=== PATIENT | male | born 1990 | race Caucasian/White ===

== ENCOUNTER 2018-06-08 09:34 | Emergency (ER) | payer SELFPAY ==
[2018-06-08] MEDS ORDERED: Bupivacaine 0.5% W/EPI SDV* 30 ML VIAL ONE (09:55)
--- NOTE | 2018-06-08 10:01 | ED ---
Throat Pain/Nasal Congestion - HPI Summary HPI Summary: This patient is a 27 year old M presenting to [facility] with a chief complaint of dental swelling that began this morning. Pt states he has needed to get his wisdom teeth removed but has not had time. The patient rates the pain 8/10 in severity. Patient reports ear pain, trouble swallowing, and gingival swelling. Patient denies fevers. He got a shot of bicillin two weeks ago. - History of Current Complaint Chief Complaint: EDDentalPain Time Seen by Provider: 06/08/18 09:47 Hx Obtained From: Patient Onset/Duration: Lasting Hours, Still Present Severity: Moderate Associated Signs And Symptoms: Positive: Negative - fever Cough: None - Allergies/Home Medications Allergies/Adverse Reactions: Allergies Allergy/AdvReac Type Severity Reaction Status Date / Time No Known Allergies Allergy Verified 06/08/18 09:45 PMH/Surg Hx/FS Hx/Imm Hx Cardiovascular History: Denies: Hx Angioplasty, Hx Cardiomegaly, Hx Coronary Artery Disease, Hx Embolism Respiratory History: Reports: Hx Asthma Denies: Hx Chronic Bronchitis, Hx Chronic Obstructive Pulmonary Disease (COPD ), Hx Cystic Fibrosis Infectious Disease History: No Infectious Disease History: Denies: Traveled Outside the [place] in Last 30 Days - Family History Known Family History: Positive: Diabetes Negative: Respiratory Disease, Seizure Disorder - Social History Lives: Dormitory/Roommates Alcohol Use: Daily Hx Substance Use: No Substance Use Type: Reports: None Hx Tobacco Use: Yes Smoking Status (MU): Current Every Day Smoker - 1 PPD Review of Systems Negative: Fever Positive: Dental Pain, Ear Ache, Other - trouble swallowing All Other Systems Reviewed And Are Negative: Yes Physical Exam - Summary Physical Exam Summary: Appearance: Well appearing, no pain distress Skin: warm, dry, reflects adequate perfusion Head/face: normal Eyes: EOMI, GO ENT: gingival edema, pericoronitis on the third molar of the left lower jaw. TTP in the left lowere jaw without noticeable swelling Neck: supple, non-tender Respiratory: CTA, breath sounds present Cardiovascular: RRR, pulses symmetrical Abdomen: non-tender, soft Bowel Sounds: present Musculoskeletal: normal, strength/ROM intact Neuro: normal, sensory motor intact, A&Ox3 Triage Information Reviewed: Yes Vital Signs On Initial Exam: Initial Vitals Temp Pulse Resp BP Pulse Ox 98.3 F 94 16 116/70 99 06/08/18 09:37 09/13/18 09:37 06/08/18 09:37 06/08/18 09:37 06/08/18 09:37 Vital Signs Reviewed: Yes Procedures - Procedure Summary Procedure Summary: Dental block: The left inferior alveolar nerve was blocked with a total of 2 cc of 0.5% bupivacaine with epinephrine. An aspiration of the site following a block produced no purulent material. He tolerated this well with improvement of pain. There were no complications. Diagnostics - Vital Signs Vital Signs Temp Pulse Resp BP Pulse Ox 06/08/18 09:37 98.3 F 94 16 116/70 99 - Laboratory Lab Statement: Any lab studies that have been ordered have been reviewed, and results considered in the medical decision making process. Re-Evaluation - Re-Evaluation First Eval Re-Evaluation Time: 10:06 Change: Improved Comment: Patients pain has improved with nerve block. EENT Course/Dx - Course Course Of Treatment: 27-year-old patient with wisdom teeth still intact with pericoronitis in the area of discomfort. There is also some local induration but no obvious abscess. Started on antibiotic, PerioGard mouthwash and naproxen. To follow-up with dental. - Differential Diagnoses Differential Diagnoses: Dental Abscess, Dental Caries, Periodontic Abscess, Periodontic Disease - Diagnoses Provider Diagnoses: Pericoronitis, Pain, dental Discharge - Sign-Out/Discharge Documenting (check all that apply): Patient Departure - Discharge Plan Condition: Improved Disposition: HOME Prescriptions: Chlorhexidine Gluconate [Periogard] 473 ml .SEE ORDER TID PRN #1 bottle PRN Reason: mouth soreness Clindamycin Cap(NF) [Clindamycin Cap 300 mg Cap(NF)] 300 mg PO Q6H #30 cap Naproxen [Naproxen 500 mg tab] 500 mg PO BID PRN #12 tablet.dr PRN Reason: Pain Patient Education Materials: Periodontal Disease (DC) Referrals: [facility] [Outside] [facility] [Outside] Additional Instructions: Call your dentist today to schedule follow-up appointment. You likely will need to see an oral surgeon to have her wisdom teeth removed after inflammation/ infection is improved. Return if worse, new symptoms, fever or other concerns. - Billing Disposition and Condition Condition: IMPROVED Disposition: Home - Attestation Statements Document Initiated by Scribe: Yes Documenting Scribe: Hernandez Lopez Provider For Whom Scribe is Documenting (Include Credential): Jimmy Gann MD Scribe Attestation: I, Hernandez Lopez , scribed for Jimmy Gann MD on 06/08/18 at 1041. Scribe Documentation Reviewed: Yes Provider Attestation: The documentation as recorded by the [email or web address] accurately reflects the service I personally performed and the decisions made by me, Jimmy Gann MD
[2018-06-08] MEDS ORDERED: Bupivacaine 0.5% W/EPI SDV* 30 ML VIAL INJ ONE (10:22)
[2018-06-08 10:27] VITALS: BP 117/78
== END 2018-06-08 10:26 | disposition home or self-care (01) ==
LOC: ED 09:34
DX: K05.30 Chronic periodontitis, unspecified (principal); K08.89 Other specified disorders of teeth and supporting structures; H92.09 Otalgia, unspecified ear; F17.210 Nicotine dependence, cigarettes, uncomplicated
CPT/HCPCS: 96374; 99282